=== PATIENT | male | born 2000 | race Hispanic/Latino ===

== ENCOUNTER 2019-04-15 11:40 | Emergency (ER) | payer MEDICAID | END 2019-04-15 12:01 | disposition home or self-care (01) | LOC: EDH 11:40 | DX: H66.91 Otitis media, unspecified, right ear (principal) ==

== ENCOUNTER 2020-08-08 08:11 | Emergency (ER) | payer MEDICAID | END 2020-08-08 09:21 | disposition home or self-care (01) | LOC: EDH 08:11 | DX: J02.9 Acute pharyngitis, unspecified (principal) ==

== ENCOUNTER 2020-09-26 08:17 | Emergency (ER) | payer MEDICAID ==
[~2020-09-26] VITALS: Ht 175.3 cm; Wt 78.0 kg
[2020-09-26] MEDS ORDERED: GENT5DRO32 OP (12:13)
[2020-09-26 12:31] VITALS: BP 134/74
== END 2020-09-26 12:32 | disposition home or self-care (01) ==
LOC: EDH 08:17
DX: H10.9 Unspecified conjunctivitis (principal)

== ENCOUNTER 2020-12-04 17:39 | Emergency (ER) | payer MEDICAID ==
[~2020-12-04] VITALS: Ht 175.3 cm; Wt 98.9 kg
[~2020-12-04 17:39] MED LIST: GENT5DRO32 OP
[2020-12-04 17:40] VITALS: BP 136/88
[2020-12-04] MEDS ORDERED: AZIT500T PO (19:43)
== END 2020-12-04 20:04 | disposition home or self-care (01) ==
LOC: EDH 17:39
DX: J02.9 Acute pharyngitis, unspecified (principal)

== ENCOUNTER 2022-08-10 16:58 | Emergency (ER) | payer MEDICAID ==
[~2022-08-10] VITALS: Ht 175.3 cm; Wt 111.1 kg
[~2022-08-10 16:58] MED LIST changes: +AZIT500T PO; -GENT5DRO32 OP; +GENT5DRO8 OP
[2022-08-10 17:04] VITALS: BP 146/98
[2022-08-10] MEDS ORDERED: CIPR7.5D OT (19:04)
[2022-08-10] MEDS ORDERED: IBUP-2070 PO (19:04)
[2022-08-10] MEDS ORDERED: KETOROLAC 30MG VIAL (30MG/ML) ONE (19:14)
[2022-08-10] MEDS ORDERED: KETOROLAC 30MG VIAL (30MG/ML) IM ONE (19:30)
== END 2022-08-10 19:29 | disposition home or self-care (01) ==
LOC: EDH 16:58
DX: H92.01 Otalgia, right ear (principal); H60.91 Unspecified otitis externa, right ear; J00 Acute nasopharyngitis [common cold]; Z20.822 Contact with and (suspected) exposure to COVID-19
CPT/HCPCS: 99283; 87426; 87880; 87804 ×2; 96372; J1885